=== PATIENT | male | born 1985 | race Caucasian/White ===

== ENCOUNTER 2017-11-21 09:11 | Emergency (ER) | payer SELFPAY ==
[2017-11-21 10:55] VITALS: BP 130/64
== END 2017-11-21 10:50 | disposition home or self-care (01) ==
LOC: ED 09:11
DX: H66.92 Otitis media, unspecified, left ear (principal); F17.210 Nicotine dependence, cigarettes, uncomplicated; Z71.6 Tobacco abuse counseling
CPT/HCPCS: 99406